=== PATIENT | female | born 1970 | race Caucasian/White ===

== ENCOUNTER 2019-05-02 09:56 | Outpatient (CLI) | payer BC, MEDICARE ==
[~2019-05-02 09:56] MED LIST: CEFD300C3 PO; CYCL-1 PO; EPIN0.3P17 IM; FAMO-129 PO; HYDR-3686 PO; ONDA4TAB6 PO; TRAM50TA2 PO
== END 2019-05-02 23:59 | disposition home or self-care (01) ==
LOC: RAD 09:56
PROVIDERS: ATTEND Psychiatry & Neurology Neurology
DX: R42 Dizziness and giddiness (principal)
CPT/HCPCS: 95816